=== PATIENT | male | born 1955 | race Caucasian/White ===

== ENCOUNTER → 2017-12-20 13:48 | Outpatient (CLI) | payer MEDICARE, MEDICAID, SELFPAY ==
--- NOTE | 2017-12-20 14:07 | CT_ITS ---
CT lung screening EXAM: CT LUNG LOW DOSE WO CONTRAST HISTORY: 62-year-old male with greater than 50 pack year smoking history, asymptomatic ITS.REASON: H/O NICOTINE DEPENDENCE ORDERING PHYSICIAN: Reilly Al MD PATIENT AGE: 62 years COMPARISON: 08/28/2016 TECHNIQUE: The exam was performed on a GE Light Speed [address] scanner using 2.90 mGy CTDI. A low dose helical CT CHEST was performed on a multi-detector scanner. All CT scans at the facility use one or more dose reduction, viz: automated exposure control; ma/kV adjustment per patient size (including targeted exams where dose is matched to indication; i.e. head); or iterative reconstruction technique. The LDCT was performed in a facility that meets the criteria for the screening program. Data regarding this exam was submitted to ACR which is an approved registry. The order for this exam indicates that it came as a result of a lung cancer screening counseling shard decision-making visit that included all the elements required of such a visit including smoking cessation. The radiologist interpreting this exam meets the CMS criteria for the LDCT lung cancer screening program. The exam is reported using the Lung-RADS classification scale and reported to the ACR registry. NOTE: This study was performed for the specific purposes of lung cancer screening and is not an alternative to diagnostic chest CT. RADIATION DOSE: CTDI vol(CT dose Index-volume) = 2.90mG DLP (Dose Length Product) = 120.37 mGcm FINDINGS: There is a 9 x 5 mm nodule in the right apex and contains a small central calcification not significant changed. There are biapical fibrotic changes which are stable. Noncalcified 3 mm nodule present in the superior segment of the right lower lobe unchanged. Noncalcified 4 mm nodule right upper lobe posteriorly unchanged Centrilobular and paraseptal emphysematous changes. Coronary artery calcifications Old right-sided rib fractures. Increased density noted within the posterior aspect of the gallbladder suggesting cholelithiasis. IMPRESSION: 1. Lung RADS Category: 2, benign 2. Other findings: COPD/centrilobular and paraseptal emphysema Possible cholelithiasis RECOMMENDATIONS: 12 month LDCT follow-up
== END ==
PROVIDERS: Family Provider Family Medicine; PCP Family Medicine; Visit Provider Family Medicine
DX: Z87.891 Personal history of nicotine dependence (principal); Z12.2 Encounter for screening for malignant neoplasm of respiratory organs

== ENCOUNTER → 2018-11-27 07:38 | Outpatient (CLI) | payer MEDICARE, MEDICAID, SELFPAY ==
--- NOTE | 2018-11-27 07:46 | CT_ITS ---
CT lung screening EXAM: CT LUNG LOW DOSE WO CONTRAST HISTORY: 75 pack-year smoking history asymptomatic for lung cancer ITS.REASON: CURRENT TOBACCO USE ORDERING PHYSICIAN: Reilly Al MD PATIENT AGE: 63 years COMPARISON: 12/20/2017 TECHNIQUE: The exam was performed on a GE Light Speed [address] scanner using 2.90 mGy CTDI. A low dose helical CT CHEST was performed on a multi-detector scanner. All CT scans at the facility use one or more dose reduction, viz: automated exposure control, ma/kV adjustment per patient size (including targeted exams where dose is matched to indication, i.e. head), or iterative reconstruction technique. The LDCT was performed in a facility that meets the criteria for the screening program. Data regarding this exam was submitted to ACR which is an approved registry. The order for this exam indicates that it came as a result of a lung cancer screening counseling shard decision-making visit that included all the elements required of such a visit including smoking cessation. The radiologist interpreting this exam meets the CMS criteria for the LDCT lung cancer screening program. The exam is reported using the Lung-RADS classification scale and reported to the ACR registry. NOTE: This study was performed for the specific purposes of lung cancer screening and is not an alternative to diagnostic chest CT. RADIATION DOSE: CTDI vol(CT dose Index-volume) = 2.90mG DLP (Dose Length Product) = 121.42 mGcm FINDINGS: Paraseptal emphysema. Biapical scarring. COPD. No change in the right apical 9 x 5 mm nodule with a central calcification. There are other smaller nodular opacities in right upper lobe which are unchanged previously described. No new nodules. Coronary artery calcifications are present. There is mild tracheobronchial megaly. IMPRESSION: 1. Lung RADS Category: 2, benign 2. Other findings: Paraseptal emphysema, COPD, coronary artery calcifications RECOMMENDATIONS: 12 month LDCT follow-up
== END ==
PROVIDERS: PCP Family Medicine; Visit Provider Family Medicine
DX: Z87.891 Personal history of nicotine dependence (principal); Z12.2 Encounter for screening for malignant neoplasm of respiratory organs

== ENCOUNTER → 2019-12-02 07:37 | Outpatient (CLI) | payer MEDICARE, MEDICAID, SELFPAY ==
--- NOTE | 2019-12-02 07:44 | CT_ITS ---
PROCEDURE: CT LUNG SCREENING CLINICAL INDICATION: H/O TOBACCO INDEPENDECE Seventy-five pack-year smoking history, asymptomatic for lung cancer COMPARISON: LUNGSCREEN CT lung screening from 11/27/2018 TECHNIQUE: The exam was performed on a GE Light Speed [address] scanner using 2.90 mGy CTDI. A low dose helical CT CHEST was performed on a multi-detector scanner. All CT scans at the facility use one or more dose reduction, viz: automated exposure control, ma/kV adjustment per patient size (including targeted exams where dose is matched to indication, i.e. head), or iterative reconstruction technique. The LDCT was performed in a facility that meets the criteria for the screening program. Data regarding this exam was submitted to ACR which is an approved registry. The order for this exam indicates that it came as a result of a lung cancer screening counseling shard decision-making visit that included all the elements required of such a visit including smoking cessation. The radiologist interpreting this exam meets the CMS criteria for the LDCT lung cancer screening program. The exam is reported using the Lung-RADS classification scale and reported to the ACR registry. NOTE: This study was performed for the specific purposes of lung cancer screening and is not an alternative to diagnostic chest CT. RADIATION DOSE: CTDI vol(CT dose Index-volume) = 2.90mG DLP (Dose Length Product) = 118.55 mGcm Lung Rads Category: FINDINGS: COPD with evidence of old granulomatous disease with biapical scarring. There are scattered small bilateral pulmonary nodules which contain calcium consistent with granulomas. No new suspicious nodules are evident. OTHER FINDINGS: Mild nonspecific thickening of the distal esophagus Coronary artery calcifications. Old right 11th and 10th rib fractures IMPRESSION: Lung rads category 1, negative Recommend 12 month LDCT Dictated by: Ernesto Doss MD 12/13/2019 07:37 Electronically signed by Ernesto Doss MD in [place] 12/13/2019 07:37
== END ==
PROVIDERS: PCP Family Medicine; Visit Provider Family Medicine
DX: Z87.891 Personal history of nicotine dependence (principal); Z12.2 Encounter for screening for malignant neoplasm of respiratory organs

== ENCOUNTER → 2020-12-14 06:39 | Outpatient (CLI) | payer MEDICARE, MEDICAID, SELFPAY ==
--- NOTE | 2020-12-14 06:44 | CT_ITS ---
PROCEDURE: CT LUNG SCREENING CLINICAL INDICATION: NICOTENE DEPENDENCE Current smoker COMPARISON: CT CT LUNG SCREENING from 12/02/2019 TECHNIQUE: The exam was performed on a GE Light Speed [address] scanner using 2.90 mGy CTDI. A low dose helical CT CHEST was performed on a multi-detector scanner. All CT scans at the facility use one or more dose reduction, viz: automated exposure control, ma/kV adjustment per patient size (including targeted exams where dose is matched to indication, i.e. head), or iterative reconstruction technique. The LDCT was performed in a facility that meets the criteria for the screening program. Data regarding this exam was submitted to ACR which is an approved registry. The order for this exam indicates that it came as a result of a lung cancer screening counseling shard decision-making visit that included all the elements required of such a visit including smoking cessation. The radiologist interpreting this exam meets the [facility] criteria for the LDCT lung cancer screening program. The exam is reported using the Lung-RADS classification scale and reported to the ACR registry. NOTE: This study was performed for the specific purposes of lung cancer screening and is not an alternative to diagnostic chest CT. RADIATION DOSE: CTDI vol(CT dose Index-volume) = 2.90mG DLP (Dose Length Product) = 117.24 mGcm FINDINGS: Biapical scarring. COPD with left apical paraseptal emphysematous change and scattered areas of scarring. Old granulomatous disease. Coronary artery calcification. Mild nonspecific thickening of the stomach possibly due to nondistention. OTHER FINDINGS: Old right 9th rib fracture. IMPRESSION: Lung-RADS Category 1 Negative Follow-up: Continue annual screening with LDCT in 12 months Dictated by: Ernesto Doss MD 12/26/2020 09:15 Ernesto Doss MD in [place] 12/26/2020 09:15
== END ==
PROVIDERS: PCP Family Medicine; Visit Provider Family Medicine
DX: Z87.891 Personal history of nicotine dependence (principal); Z12.2 Encounter for screening for malignant neoplasm of respiratory organs
CPT/HCPCS: 71271

== ENCOUNTER → 2022-11-29 10:47 | Outpatient (CLI) | payer MEDICARE, MEDICAID, SELFPAY ==
--- NOTE | 2022-11-29 10:57 | CT_ITS ---
FINAL REPORT CLINICAL HISTORY: H/O TOBACCO USE smoker 1.5 ppd x 52 years copd, family hx of lung cancer COMPARISON: 01/03/2021, 12/02/2019 FINDINGS: CTDI vol (mGy): 2.90 DLP: 113.[address] images of the chest were obtained using the low-dose protocol for screening. There are several, borderline mediastinal lymph nodes, unchanged. There is no evidence of mediastinal or hilar mass or adenopathy. No axillary mass or adenopathy is identified. On the lung window images, again seen is a 9 mm nodule in the right upper lobe with central calcification consistent with granuloma. Less than 5 mm bilateral nodules which are also stable. Mild emphysema and scarring is seen. There are several other, less than 5 mm bilateral nodules. There are several other, less than 5 mm bilateral nodules which are stable. Mild emphysema and mild scarring is seen. There are mild coronary artery calcifications. IMPRESSION: Stable 9 mm right upper lobe nodule consistent with granuloma. Lung RADS category 1 . Recommend 12 month followup low-dose CT for further evaluation. Reviewed, Interpreted and Dictated by Ramón Pena III, MD Transcribed by Elizabeth Lai Authenticated and [facility]
== END ==
PROVIDERS: PCP Family Medicine; Visit Provider Family Medicine
DX: Z87.891 Personal history of nicotine dependence (principal); Z12.2 Encounter for screening for malignant neoplasm of respiratory organs
CPT/HCPCS: 71271

== ENCOUNTER 2023-12-09 08:40 | Outpatient (CLI) | payer MEDICARE, MEDICAID, SELFPAY ==
--- NOTE | 2023-12-09 08:44 | CT_ITS ---
FINAL REPORT TECHNIQUE: Thin section axial images were obtained from the lung apices to the upper abdomen by computed tomography. Reformatted images were obtained and reviewed. This study was performed with techniques to keep radiation doses al low as reasonably achievable (ALARA). Individualized dose reduction techniques using automated exposure control or adjustment of mA and/or kV according to the patient's size were employed. CLINICAL HISTORY: H/O TOBACCO USE current smoker 1.5ppd x62 years COMPARISON: 11/29/2022 and 12/14/2020 FINDINGS: CHEST CT LOW DOSE CTDI vol (mGy): 2.90 DLP (mGy-cm): 111.25 There are several borderline sized mediastinal nodes which are stable. The heart is normal in size. There are mild coronary artery calcifications. There is no pericardial or pleural effusion. There is mild emphysema and mild pulmonary scarring. Lung window images demonstrate a 9 mm partially calcified lateral right upper lobe nodule, stable since December 2020. There are several other less than 5 mm noncalcified nodules which are also stable. There is a calcified granuloma in the right lung. Limited images of the upper abdomen are unremarkable. IMPRESSION: Stable lung nodules as above. Lung-RADS category 1. Recommend 12 month follow up low dose chest CT. Reviewed, Interpreted and Dictated by Ramón Pena III, MD Transcribed by Laura Lance Authenticated and [facility]
== END 2023-12-09 23:59 | disposition home or self-care (01) ==
LOC: RAD 08:41
PROVIDERS: PCP Family Medicine; Visit Provider Family Medicine
DX: Z87.891 Personal history of nicotine dependence (principal); Z12.2 Encounter for screening for malignant neoplasm of respiratory organs
CPT/HCPCS: 71271

== ENCOUNTER 2025-03-18 09:42 | Outpatient (CLI) | payer MEDICARE, MEDICAID, SELFPAY ==
--- OUTSIDE RECORDS SUMMARY | 2023-11-19 05:00 | XMS_ITS ---
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 Designer Name Role Phone Reilly Al Primary Care Provider Allergies No Known Allergies Results Component Value Reference Range Notes P-Vitamin B12 Reviewed date:11/20/2023 10:23:57 AM Interpretation:1775 Performing Lab: Notes/Report: Test performed by [facility] [address] [place] [address] , [address], [place] [address] Chong Polo MD, Business Communications Instructor CLIA: [id number] Vitamin B12 8754 560-2785 pg/mL P-Basic Metabolic Panel (BMP ) Reviewed date:11/20/2023 10:23:57 AM Interpretation:Na 134 Performing Lab: Notes/Report: Test performed by [facility] [address] [place] [address] , [address], [place] [address] Chong Polo MD, Business Communications Instructor CLIA: [id number] Sodium 134 135-145 mEq/L Potassium 4.5 3.5-5.3 mEq/L Chloride 100 97-108 mEq/L CO2 23 22-32 mEq/L Glucose 87 65-99 mg/dL BUN 11 8-23 mg/dL Creatinine 0.72 0.70-1.30 mg/dL Calcium 9.8 8.6-10.4 mg/dL eGFR by Creatinine 99 >59 mL/min/1.73m2 P-Lipid Panel Reviewed date:11/20/2023 10:23:57 AM Interpretation:Normal Performing Lab: Notes/Report: Test performed by [facility] [address] [place] [address] , [address], [place] [address] Chong Polo MD, Business Communications Instructor CLIA: [id number] Cholesterol 195 <200 mg/dL Triglycerides 52 <150 mg/dL HDL Cholesterol 78 >39 mg/dL Cholesterol / HDL Ratio 2.50 0.00-4.99 Ratio Non-HDL Cholesterol 117 <130 mg/dL LDL Cholesterol (Calculation) 107 <130 mg/dL LDL Cholesterol Levels* Less than 100 mg/dL Optimal 100 to 129 mg/dL Near Optimal/ Above Optimal 130 to 159 mg/dL Borderline High 160 to 189 mg/dL High 190 mg/dL and above Very High * Categories as recommended by the 2004 ATPIII guidelines LDL/HDL Ratio 1.4 <3.3 Ratio LDL Cholesterol Patient History Test Date: 05/22/2022 LDL Results: 136 Units: mg/dL % Change: - Test Date: 11/19/2023 LDL Results: 107 Units: mg/dL % Change: -21% P-Microalbumin/Creatinine, R andom Urine Sample Reviewed date:11/20/2023 10:23:57 AM Interpretation:Normal Performing Lab: Notes/Report: Test performed by [facility] [address] [place] [address] , [address], [place] [address] Chong Polo MD, Business Communications Instructor CLIA: [id number] Albumin/Creatinine Ratio, Urine 6 0-30 ug/m g Microalbumin, Urine, Random 0.6 Creatinine, Urine 103.7 P-Uric Acid Reviewed date:11/20/2023 10:23:57 AM Interpretation:Normal Performing Lab: Notes/Report: Test performed by [facility] [address] [place] [address] , [address], [place] [address] Chong Polo MD, Business Communications Instructor CLIA: [id number] Uric Acid 5.1 3.4-8.0 mg/dL CT Scan : Chest, low dose Reviewed date:12/10/2023 10:49:44 AM Interpretation:Stable; annual f/u Performing Lab: Notes/Report: Stable; annual f/u REASON FOR VISIT 6 month Medications Medication SIG (Take, Route, Frequency, Duration) Notes Start Date End Date Status Famotidine 40 MG 1 tab(s) orally once a day (at bedtime); Duration: 90 days Active Vitamin B-12 1000 MCG 1 tab(s) orally once a day 0 12/18/2018 Active Gabapentin 100 MG 1 capsule Orally Two times a day; Duration: 30 day(s) 10/25/2023 Activ e Lisinopril 20 MG 1 tab(s) orally once a day Active Sildenafil Citrate 20 MG 1 to 5 tab(s) o rally once daily as needed 11/23/2019 Active Vital Signs Blood pressure systolic 132 mm Hg 11/19/19 24 Blood pressure diastolic 82 mm Hg 024 Heart Rate 53 /min 11/19/2023 Height 65 in 11/19/2023 Weight 142.4 lbs 11/19/2023 BMI 23.69 kg/m2 11/19/2023 Encounters Encounter Location Date Provider Diagnosis [facility] [address] [facility] [address] [place], [place] [id number] 11/19/2023 Reilly [place] Essential hypertensi on I10 ; Vitamin B12 deficiency E53.8 ; Gastroesophageal reflux disease, esophagitis presence not specified K21.9 ; Personal history of nicotine dependence Z87.891 and Encounter for screening for lung cancer Z12.2 Assessments Encounter Date Diagnosis (ICD Code) Assessment Notes Treatment Notes Treatment Clinical Notes Section Notes 11/19/2023 Essential hypertension (ICD-10 - I10) 11/19/2023 Vitamin B12 deficiency (ICD-10 - E53.8) 11/19/2023 Gastroesophageal reflux disease, esophagitis presence not specified (ICD-10 - K21.9) 11/19/2023 Personal history of nicotine dependence (ICD-10 - Z87.891) 11/19/2023 Encounter for screening for lung cancer (ICD-10 - Z12.2) Plan Of Treatment Medication Medication Name Sig Start Date Stop Date Notes Famotidine 40 MG 1 tab(s) orally once a day (at bedtime); Duration: 90 days Vitamin B-12 1000 MCG 1 tab(s) orally once a day 9 Lisinopril 20 MG 1 tab(s) orally once a day Next Appt Details Follow Up: 6 Months, Reason: Provider Name:Reilly Brito ry, 09/06/2025 10:45:00 AM, [address] [facility] [address] [facility], [address] , [place], [place], [id number], Progress Notes * AQUILINOZanDOB:1955 (69 yo M)Acc No.[id number]:11/19/2023 Progress Notes Patient: Zan CAMILO Provider: Luz Al M.D. :1955 A ge:68 Y S ex:Male Date:11/19/2023 Address:[address] [place] [address], [id number] Subjective: * Chief Complaints: * 1 . 6 month. * HPI: C ardiology: 68 year old male presents with c/o BloodPressure at Home T he patient is here today for a check up on Hypertension. Pt states he is fasting except for a cup of coffee with cream. Pt states he is doing good and denies any new concerns. Pt is needing a refill for Famotidine sent to [facility] in [place]. * ROS: D ERMATOLOGY: no R helena. n o H tanisha. G ASTROENTEROLOGY: no N ausea. n o V omiting. n o D iarrhea.? U ROLOGY: no D ifficulty urinating. n o B lood in urine. * Medical History: D isabled due to back pain (medical eval in 2004 or 2005), Tobacco abuse, 100 pack year smoking history as of 2017, Esophageal reflux, Hypertension, Bilateral knee arthritis. * Surgical History: R T Arm , LT Knee Cyst Removal 07/2015. * Hospitalization/Major Diagno stic Procedure: C hest Pain, Normal Stress Test 07/2008, LT Shoulder Pain- [facility] ER 02/2013. * Family History: F ather: , coronary artery disease. M other: , cancer. 2 brother(s) , 3 sister(s) . 1 son(s) , 1 daughter(s) . . * Social History: C URRENT TOBACCO USE S moking Status: Patient does smoke, packs per day: 1.5. C affeine: yes, frequency:. Marital Status: Single. Past smoking status: yes, PPD:2 , 20years: ,determination:. * Medications: T aking Sildenafil Citrate 20 MG Tablet 1 to 5 tab(s) orally once daily as needed , Taking Vitamin B-12 1000 MCG Tablet 1 tab(s) orally once a day , Taking Lisinopril 20 MG Tablet 1 tab(s) orally once a day , Taking Famotidine 40 MG Tablet 1 tab(s) orally once a day (at bedtime) , Taking Gabapentin 100 MG Capsule 1 capsule Orally Two times a day , Discontinued Mupirocin 2 % Ointment 1 application Externally Twice a day , Discontinued Sulindac 200 MG Tablet 1 tab(s) orally 2 times a day , Medication List reviewed and reconciled with the patient * Allergies: N .K.D.A. Objective: * Vitals: W t:142.4, Temp:97.6, BP:132/82, HR:53, Nurse:OMAR, Ht: 65, BMI:23.69. * Examination: C ardiology: General Appearance: p leasant, NAD. H eart sounds: R RR, normal S1, S2. L ungs: c lear, no rales or wheezes. E xtremities: n o leg edema. P eripheral pulses: 2 plus bilateral. Assessment: * Assessment: 1. E ssential hypertension - I10 (Primary) 2 . V itamin B12 deficiency - E53.8 3 . G astroesophageal reflux disease, esophagitis presence not specified - K21.9 4 . P ersonal history of nicotine dependence - Z87.891 5 . Encounter for screening for lung cancer - Z12.2 Plan: * Treatment: Value Reference Range B UN 11 8-23 - mg/dL * C alcium 9.8 8.6-10.4 - mg/dL * C hloride 100 97-108 - mEq/L * C O2 23 22-32 - mEq/L * C reatinine 0.72 0.70-1.30 - mg/dL * G lucose 87 65-99 - mg/dL * P otassium 4.5 3.5-5.3 - mEq/L * S odium 134 L 135-145 - mEq/L * e GFR by Creatinine 99 >59 - mL/min/1.73m2 * Theresa Singleton 11/20/2023 10:2 2:40 AM >See phone encounter ?LAB: P-Lipid Panel (Collection Date & Time - 11/19/2023 08:25 AM)?Normal* Value Reference Range C holesterol / HDL Ratio 2.50 0.00-4.99 - Ratio * C holesterol 195 <200 - mg/dL * H DL Cholesterol 78 >39 - mg/dL * L DL Cholesterol (Calculation) 107 <130 - mg/d L * L DL/HDL Ratio 1.4 <3.3 - Ratio * N on-HDL Cholesterol 117 <130 - mg/dL * T riglycerides 52 <150 - mg/dL * Thersea Singleton 11/20/2023 10:2 2:40 AM >See phone encounter ?LAB: P-Microalbumin/Creatinine, Random Urine Sample (Collection Date & Time - 11/19/2023 08:25 AM)?Normal* Value Reference Range A lbumin/Creatinine Ratio, Urine 6 0-30 - ug /mg * C reatinine, Urine 103.7 - mg/dL * M icroalbumin, Urine, Random 0.6 - mg/dL * Priya Singletonica 11/20/2023 10:2 2:40 AM >See phone encounter ?LAB: P-Uric Acid (Collection Date & Time - 11/19/2023 08:25 AM)?Normal* Value Reference Range U moreno Acid 5.1 3.4-8.0 - mg/dL * Priya Singletonica 11/20/2023 10:2 2:40 AM >See phone encounter 2.?Vitamin B12 deficiency? Continue Vitamin B-12 Tablet, 1000 MCG, 1 tab(s), orally, once a day.?LAB: P-Vitamin B12 (Collection Date & Time - 11/19/2023 08:25 AM)?1775* Value Reference Range V itamin B12 1775 H 232-1245 - pg/mL * Priya Singletonica 11/20/2023 10:2 2:40 AM >See phone encounter 3.?Gastroesophageal reflux disease, esophagitis presence not specified? Refill Famotidine Tablet, 40 MG, 1 tab(s), orally, once a day (at bedtime), 90 days, 90, Refills 1. ?4.?Personal history of nicotine dependence?Imaging: CT Scan : Chest, low dose (Performed Date - 12/09/2023)?Stable; annual f/u* Zoila Thomson 11/19/2023 10:47 :00 AM > [facility] 12/09/2023 at 01:45pm; patient informed; order Jovita Yoon 12/10/2023 10:48:47 AM > Pt informed 5.?Encounter for screening for lung cancer?Imaging: CT Scan : Chest, low dose (Performed Date - 12/09/2023)?Stable; annual f/u* Zoila Thomson 11/19/2023 10:47 :00 AM > [facility] 12/09/2023 at 01:45pm; patient informed; order Jovita Yoon 12/10/2023 10:48:47 AM > Pt informed * Procedure Codes: G 2211 Complex e/m visit add on * Follow Up: 6 Months * Images: Billing Information: * Visit Code: 21095 Office Visit, Est Pt., Level 4. * Procedure Codes: G2211 Complex e/m visit add on. * Electronic signature of Araceli Al MD on 03/18/2025 at 09:50 AM EDT Sign off status: Pending * Provider: Luz Al M.D. Date: 0 11/19/2023 Generated for Claudia pemberton/Jennifer/Kacyitting on: 0 03/18/2025 09:50 AM EDT History and Physical Notes * HPI (History of Present Illness) Category Sub-Category Detail Notes Category Not es Cardiology BloodPressure at Home The patien t is here today for a check up on Hypertension. Pt states he is fasting except for a cup of coffee with cream. Pt states he is doing good and denies any new concerns. Pt is needing a refill for Famotidine sent to [facility] in [place] Examination Category Sub-Category Detail Notes Category Not es Cardiology Lungs: clear, no rales or wheezes Heart sounds: RRR, normal S1, S2 Extremities: no leg edema Peripheral pulses: 2 plus bilateral General Appearance: pleasant, NAD
--- OUTSIDE RECORDS SUMMARY | 2024-08-28 07:15 | XMS_ITS ---
Author Organization [facility] Address 1210 [facility] [address] [place] [phone] Care Team Providers Care Custody Officer Name Role Phone Reilly Al Primary Care Provider [phone] Allergies No Known Allergies REASON FOR VISIT check up Medications Medication SIG (Take, Route, Frequency, Duration) Notes Start Date End Date Status Promethazine-DM 6.25-15 MG/5ML 5 ml as needed Orally every 6 hrs 08/28/2024 Active Vitamin B-12 1000 MCG 1 tab(s) orally once a day 0 12/18/2018 Active Gabapentin 100 MG 1 capsule Orally Two times a day; Duration: 30 day(s) 02/21/2024 Activ e Famotidine 40 MG 1 tab(s) orally once a day (at bedtime); Duration: 90 days Active Sildenafil Citrate 20 MG 1 to 5 tab(s) o rally once daily as needed 11/23/2019 Active Lisinopril 20 MG 1 tab(s) orally once a day Active Vital Signs Blood pressure systolic 128 mm Hg 08/28/19 25 Blood pressure diastolic 78 mm Hg 025 Heart Rate 78 /min 08/28/2024 Height 65 in 08/28/2024 Weight 153 lbs 08/28/2024 BMI 25.46 kg/m2 08/28/2024 Encounters Encounter Location Date Provider Diagnosis [facility] [address] [place] [address] [place] [phone] 08/28/2024 Reilly Al Essential hypertensi on I10 and Acute cough R05.1 Assessments Encounter Date Diagnosis (ICD Code) Assessment Notes Treatment Notes Treatment Clinical Notes Section Notes 08/28/2024 Essential hypertension (ICD-10 - I10) 08/28/2024 Acute cough (ICD-10 - R05.1) Plan Of Treatment Medication Medication Name Sig Start Date Stop Date Notes Promethazine-DM 6.25-15 MG/5ML 5 ml as n eeded Orally every 6 hrs 08/28/2024 Lisinopril 20 MG 1 tab(s) orally once a day Next Appt Details Follow Up: 6 Months fasting, Reason: Provider Name:Reilly Brito ry, 09/06/2025 10:45:00 AM, [address], [place], [place], [id number], Progress Notes * Zan FLORESDOB:1955 (69 yo M)Acc No.[id number]:08/28/2024 Progress Notes Patient: Zan CAMILO Provider: Luz Al M.D. :1955 A ge:69 Y S ex:Male Date:08/28/2024 Address:[address] [place] [address], [place], [id number] Subjective: * Chief Complaints: * 1 . Check up. * HPI: C ardiology: 69 year old male presents with c/o Blood Pressure Elevated P t here to f/u on hypertension, states he is doing well and does not have any concerns . c/o Hyperlipidemia P t is not fasting today. E NT/respiratory: c/o cough P t complains of greenish yellow sputum production cough for about a week. Associated with sneezing and congestion. Pt states he has been taking Mucinex but sx's have not improved. * ROS: D ERMATOLOGY: no R helena. n o H tanisha. G ASTROENTEROLOGY: no N ausea. n o V omiting. U ROLOGY: no D ifficulty urinating. n [...] Normal Stress Test 07/2008, LT Shoulder Pain- [facility] ER 02/2013. * Family History: F [...] , 20years: ,determination:. * Medications: T aking Vitamin B-12 1000 MCG Tablet 1 tab(s) orally once a day , Taking Gabapentin 100 MG Capsule 1 capsule Orally Two times a day , Taking Famotidine 40 MG Tablet 1 tab(s) orally once a day (at bedtime) , Taking Sildenafil Citrate 20 MG Tablet 1 to 5 tab(s) orally once daily as needed , Taking Lisinopril 20 MG Tablet 1 tab(s) orally once a day , Medication List reviewed and reconciled with the patient * Allergies: N .K.D.A. Objective: * Vitals: W t:153, Temp:97.9, BP:128/78, HR:78, Nurse:erwin, Ht: 65, BMI:25.46. * Examination: E NT/Respiratory: General Appearance: N AD. E yes: P ERRLA, sclera clear. O ral cavity : n o erythema or exudate seen on pharynx. N maria esther : n o cervical lymphadenopathy. H eart : R RR, normal S1 S2. L ungs: c lear to auscultation bilaterally. Assessment: * Assessment: 1. E ssential hypertension - I10 (Primary) 2 . A cute cough - R05.1 ? Plan: * Treatment: 2. A cute cough Start Promethazine-DM Syrup, 6.25-15 MG/5ML, 5 ml as needed, Orally, every 6 hrs, 473 mL, Refills 0. * Procedure Codes: G 2211 Complex e/m visit add on, 3074F SYST BP LT 130 MM HG, 3078F DIAST BP < 80 MM HG * Follow Up: 6 Months fasting * Images: Billing Information: * Visit Code: 54250 Office Visit, Est Pt., Level 3. * Procedure Codes: G2211 Complex e/m visit add on. 3074F SYST BP LT 130 MM HG. 3078F DIAST BP < 80 MM HG. * Electronic signature of Araceli Al MD on 03/18/2025 at 09:51 AM EDT Sign off status: Pending * Provider: Luz Al M.D. Date: 0 08/28/2024 Generated for Claudia pemberton/Jennifer/eTransmitting on: 0 03/18/2025 09:51 AM EDT History and Physical Notes * HPI (History of Present Illness) Category Sub-Category Detail Notes Category Not es ENT/respiratory cough Pt complains of greenish yellow sputum production cough for about a week. Associated with sneezing and congestion. Pt states he has been taking Mucinex but sx's have not improved Cardiology Blood Pressure Elevated Pt here to f/u on hypertension, states he is doing well and does not have any concerns Hyperlipidemia Pt is not fasting to day Examination Category Sub-Category Detail Notes Category Not es ENT/Respiratory Oral cavity : no erythema or exudate s een on pharynx Neck : no cervical lymphade nopathy Heart : RRR, normal S1 S2 Lungs: clear to auscultatio n bilaterally General Appearance: NAD Eyes: PERRLA, sclera clear
--- OUTSIDE RECORDS SUMMARY | 2025-03-05 06:45 | XMS_ITS ---
Author Organization [facility] Address [address] [facility] [address] [place] [phone] Care Team Providers Care Ostomy Nurse Name Role Phone Reilly Al Primary Care Provider Allergies No Known Allergies Results Component Value Reference Range Notes CBC Venipuncture (in house) Reviewed date:03/09/2025 09:15:09 AM Interpretation:hgb 17.1 Performing Lab: Notes/Report: hgb 17.1 wbc 6.7 3.5 - 10 lymph 18.9% 15 - 50 mid 5.6% 2 - 15 gran 75.5% 35 - 80 rbc 5.20 3.5 - 5.5 hgb 17.1 11.5 - 16.5 hct 49.8 35 - 55 mcv 95.7 75 - 100 mch 32.8 25 - 35 mchc 34.3 31 - 38 platlet 354 100 - 400 P-Comprehensive Metabolic Pa lynsey (CMP) Reviewed date:03/09/2025 09:15:09 AM Interpretation:Na 133, Glu 133, Alk Phos 164 Performing Lab: Notes/Report: Test performed by [employer], [employer] [facility] , [address], [place] [address] Chong Polo MD, Airline Counter Agent CLIA: [id number] Sodium 133 135-145 mmol/L Potassium 4.2 3.5-5.3 mmol/L Chloride 97 97-108 mmol/L CO2 24 20-32 mmol/L Glucose 133 65-99 mg/dL BUN 8 8-23 mg/dL Creatinine 0.77 0.70-1.30 mg/dL Calcium 9.9 8.6-10.4 mg/dL eGFR by Creatinine 97 >59 mL/min/1.73m2 Protein 7.1 6.0-8.3 g/dL Albumin 4.5 3.5-5.3 g/dL Alkaline Phosphatase 164 40-129 IU/L ALT (SGPT) 16 <5-55 IU/L AST (SGOT) 21 <5-46 IU/L Bilirubin, Total 0.4 <0.2-1.2 mg/dL A/G Ratio 1.7 1.1-2.5 P-Lipid Panel Reviewed date:03/09/2025 09:15:09 AM Interpretation:Non-HDL 140 Performing Lab: Notes/Report: Test performed by [employer], [address] , [address], [place] [address] Chong Polo MD, Airline Counter Agent CLIA: [id number] Cholesterol 195 <200 mg/dL Triglycerides 86 <150 mg/dL HDL Cholesterol 55 >39 mg/dL Cholesterol / HDL Ratio 3.55 0.00-4.99 Ratio Non-HDL Cholesterol 140 <130 mg/dL LDL Cholesterol (Calculation) 123 <130 mg/dL LDL Cholesterol Levels* Less than 100 mg/dL Optimal 100 to 129 mg/dL Near Optimal/ Above Optimal 130 to 159 mg/dL Borderline High 160 to 189 mg/dL High 190 mg/dL and above Very High * Categories as recommended by the 2004 ATPIII guidelines LDL/HDL Ratio 2.2 <3.3 Ratio LDL Cholesterol Patient History Test Date: 05/22/2022 LDL Results: 136 Units: mg/dL % Change: - Test Date: 11/19/2023 LDL Results: 107 Units: mg/dL % Change: -21% Test Date: 03/05/2025 LDL Results: 123 Units: mg/dL % Change: +14% P-TSH reflex to FT4 Reviewed date:03/09/2025 09:15:09 AM Interpretation:Normal Performing Lab: Notes/Report: Test performed by [facility] [address] [place], [place] [address] [address] , [place] [address] Chong Polo MD, Airline Counter Agent CLIA: [id number] TSH reflex to FT4 0.72 0.43-5.25 mU/L P-Microalbumin/Creatinine, R andom Urine Sample Reviewed date:03/17/2025 01:53:49 PM Interpretation:Normal Performing Lab: Notes/Report: Test performed by [facility] [address] [place], [place] [address] [address] , [place] [address] Chong Polo MD, Airline Counter Agent CLIA: [id number] Albumin/Creatinine Ratio, Urine <7.53 0-30 ug/m g Microalbumin, Urine, Random <0.3 Creatinine, Urine 39.8 REASON FOR VISIT 6 month ckup Medications Medication SIG (Take, Route, Frequency, Duration) Notes Start Date End Date Status Cetirizine HCl 10 MG 1 tablet Orally Onc e a day; Duration: 30 day(s) 03/05/2025 Active Sildenafil Citrate 20 MG 1 to 5 tab(s) o rally once daily as needed 11/23/2019 Active Lisinopril 20 MG Take 1 tablet by darion th once daily Active Famotidine 40 MG 1 tab(s) orally once a day (at bedtime) Active Promethazine-DM 6.25-15 MG/5ML 5 ml as needed Orally every 6 hrs 08/28/2024 Active Gabapentin 100 MG 1 capsule Orally Two times a day; Duration: 30 day(s) 02/21/2024 Activ e Vitamin B-12 1000 MCG 1 tab(s) orally once a day 0 12/18/2018 Active Problems Problem Type SNOMED Code ICD Code Onset Dates Problem Status W/U Status Risk Notes Problem Allergic rhinitis (52021835) Allergic rhinitis, unspecified seasonality, unspecified trigger (J30.9) Active confirmed Vital Signs Blood pressure systolic 124 mm Hg 03/05/20 25 Blood pressure diastolic 80 mm Hg 025 Heart Rate 70 /min 03/05/2025 Height 65 in 03/05/2025 Weight 144.4 lbs 03/05/2025 BMI 24.03 kg/m2 03/05/2025 Encounters Encounter [facility] Date 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 Z79.899 ; Allergic rhinitis, unspecified seasonality, unspecified trigger J30.9 and BMI 24.0-24.9, adult Z68.24 Assessments Encounter Date Diagnosis (ICD Code) Assessment Notes Treatment Notes Treatment Clinical Notes Section Notes 03/05/2025 Essential hypertensi on (ICD-10 - I10) 03/05/2025 Vitamin B12 deficien cy (ICD-10 - E53.8) 03/05/2025 Pure hypercholesterolemia (ICD-10 - E78.00) 03/05/2025 Gastroesophageal ref lux disease, esophagitis presence not specified (ICD-10 - K21.9) 03/05/2025 termite control service representative use of radhika g (ICD-10 - Z79.899) 03/05/2025 Allergic rhinitis, unspecified seasonality, unspecified trigger (ICD-10 - J30.9) 03/05/2025 BMI 24.0-24.9, adult (ICD-10 - Z68.24) Plan Of Treatment Medication Medication Name Sig Start Date Stop Date Notes Cetirizine HCl 10 MG 1 tablet Orally Onc e a day; Duration: 30 day(s) 03/05/2025 Lisinopril 20 MG Take 1 tablet by mouth once daily Famotidine 40 MG 1 tab(s) orally once a day (at bedtime) Next Appt Details Follow Up: 6 Months, Reason: Provider Name:Reilly Brito ry, 09/06/2025 10:45:00 AM, [address], [place], [place], [phone], Progress Notes * Zan FLORESDOB:1955 (69 yo M)Acc No.[id number]:03/05/2025 Progress Notes Patient: Zan CAMILO Provider: Luz Al M.D. :1955 A ge:69 Y S ex:Male Date:03/05/2025 Address:[address] [place] [address], [facility] Subjective: * Chief Complaints: * 1 . 6 month ckup. * HPI: C ardiology: 69 year old male presents with c/o Blood Pressure Elevated P t here for 6 mo check up on hypertension. Pt states he is doing fine other than his allergies acting up. c/o Hyperlipidemia Pt is not fasting today. * ROS: D ERMATOLOGY: no R helena. [...] Normal Stress Test 07/2008, LT Shoulder Pain- [facility] ER 02/2013. * Family History: F ather: [...] Orally Two times a day , Taking Sildenafil Citrate 20 MG Tablet 1 to 5 tab(s) orally once daily as needed , Taking Promethazine-DM 6.25-15 MG/5ML Syrup 5 ml as needed Orally every 6 hrs , Taking Lisinopril 20 MG Tablet Take 1 tablet by mouth once daily , Taking Famotidine 40 MG Tablet 1 tab(s) orally once a day (at bedtime) , Medication List reviewed and reconciled with the patient * Allergies: N .K.D.A. Objective: * Vitals: W t: 144.4, Temp: 97.8, BP: 124/80, HR: 70, Nurse: SYDNIE, Ht: 65, BMI:24.03. * Examination: C ardiology: General Appearance: p leasant, NAD. H eart sounds: R RR, normal S1, S2. L ungs: c lear, no rales or wheezes. E xtremities: n o leg edema. P eripheral pulses: 2 plus bilateral. Assessment: * Assessment: 1. E ssential hypertension - I10 (Primary) 2 . V itamin B12 deficiency - E53.8 3 . P ure hypercholesterolemia - E78.00 4 . G astroesophageal reflux disease, esophagitis presence not specified - K21.9 5 . L adriane term use of drug - Z79.899 6 . A llergic rhinitis, unspecified seasonality, unspecified trigger - J30.9 7 . B HI 24.0-24.9, adult - Z68.24 Plan: * Treatment: Value Reference Range A /G Ratio 1.7 1.1-2.5 - * A lbumin 4.5 3.5-5.3 - g/dL * A lkaline Phosphatase 164 H 40-129 - IU/L * A LT (SGPT) 16 <5-55 - IU/L * A ST (SGOT) 21 <5-46 - IU/L * B ilirubin, Total 0.4 <0.2-1.2 - mg/dL * B UN 8 8-23 - mg/dL * C alcium 9.9 8.6-10.4 - mg/dL * C hloride 97 97-108 - mmol/L * C O2 24 20-32 - mmol/L * C reatinine 0.77 0.70-1.30 - mg/dL * G lucose 133 H 65-99 - mg/dL * P otassium 4.2 3.5-5.3 - mmol/L * S odium 133 L 135-145 - mmol/L * P rotein 7.1 6.0-8.3 - g/dL * e GFR by Creatinine 97 >59 - mL/min/1.73m2 * Shayy Pelletier 03/09/2025 09:1 5:04 AM EDT > See phone encounter ?LAB: P-Microalbumin/Creatinine, Random Urine Sample (Collection Date & Time - 03/09/2025 12:00 PM)?Normal* Value Reference Range A lbumin/Creatinine Ratio, Urine <7.53 0-30 - ug /mg * C reatinine, Urine 39.8 - mg/dL * M icroalbumin, Urine, Random <0.3 - mg/dL * Jovita Wall 03/17/2025 01:53: 43 PM EDT > Pt notified 2.?Pure hypercholesterolemia?LAB: P-Comprehensive Metabolic Panel (CMP) (Collection Date & Time - 03/05/2025 10:06 AM)?Na 133, Glu 133, Alk Phos 164* Value Reference Range A /G Ratio 1.7 1.1-2.5 - * A lbumin 4.5 3.5-5.3 - g/dL * A lkaline Phosphatase 164 H 40-129 - IU/L * A LT (SGPT) 16 <5-55 - IU/L * A ST (SGOT) 21 <5-46 - IU/L * B ilirubin, Total 0.4 <0.2-1.2 - mg/dL * B UN 8 8-23 - mg/dL * C alcium 9.9 8.6-10.4 - mg/dL * C hloride 97 97-108 - mmol/L * C O2 24 20-32 - mmol/L * C reatinine 0.77 0.70-1.30 - mg/dL * G lucose 133 H 65-99 - mg/dL * P otassium 4.2 3.5-5.3 - mmol/L * S odium 133 L 135-145 - mmol/L * P rotein 7.1 6.0-8.3 - g/dL * e GFR by Creatinine 97 >59 - mL/min/1.73m2 * Shayy Pelletier 03/09/2025 09:1 5:04 AM EDT > See phone encounter ?LAB: P-Lipid Panel (Collection Date & Time - 03/05/2025 10:06 AM)?Non-HDL 140* Value Reference Range C holesterol / HDL Ratio 3.55 0.00-4.99 - Ratio * C holesterol 195 <200 - mg/dL * H DL Cholesterol 55 >39 - mg/dL * L DL Cholesterol (Calculation) 123 <130 - mg/d L * L DL/HDL Ratio 2.2 <3.3 - Ratio * N on-HDL Cholesterol 140 H <130 - mg/dL * T riglycerides 86 <150 - mg/dL * Shayy Pelletier 03/09/2025 09:1 5:04 AM EDT > See phone encounter ?LAB: P-TSH reflex to FT4 (Collection Date & Time - 03/05/2025 10:06 AM)? Normal* Value Reference Range T SH reflex to FT4 0.72 0.43-5.25 - mU/L * Shayy Pelletier 03/09/2025 09:1 5:04 AM EDT > See phone encounter 3.?Gastroesophageal reflux disease, esophagitis presence not specified? Continue Famotidine Tablet, 40 MG, 1 tab(s), orally, once a day (at bedtime).?? 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 Start Cetirizine HCl Tablet, 10 MG, 1 tablet, Orally, Once a day, 30 day(s), 30.?? * Procedure Codes: G 2211 Complex e/[place], [address] CBC WITH AUTO DIFF, G8420 BMI<30 AND >=22 CALC & DOCU, G8950 PREHTN/HTN BP DOC INDCD F/U DOC, G8752 MOST RECENT SYSTOLIC BP < 140MM HG, G8754 MOST RECENT DIASTOLIC BP < 90MM HG * Follow Up: 6 Months * Images: Drawin03/05/25 [facility] Billing Information: * Visit Code: 22494 Office Visit, Est Pt., Level 4. * Procedure Codes: G2211 Complex e/[place]. [address] CBC WITH AUTO DIFF. G8420 BMI<30 AND >=22 CALC & DOCU. G8950 PREHTN/HTN BP DOC INDCD F/U DOC. G8752 MOST RECENT SYSTOLIC BP < 140MM HG. G8754 MOST RECENT DIASTOLIC BP < 90MM HG. * Electronic signature of Araceli Al MD on 03/18/2025 at 09:51 AM EDT Sign off status: Pending * Provider: Luz Al M.D. Date: 0 03/05/2025 Generated for Claudia pembetron/Jennifer/Kacyitting on: 0 03/18/2025 09:51 AM EDT History and Physical Notes * HPI (History of Present Illness) Category Sub-Category Detail Notes Category Not es Cardiology Blood Pressure Elevated Pt here for 6 mo check up on hypertension. Pt states he is doing fine other than his allergies acting up Hyperlipidemia Pt is not fasting to day Examination Category Sub-Category Detail Notes Category Not es Cardiology Lungs: clear, no rales or wheezes Heart sounds: RRR, normal S1, S2 Extremities: no leg edema Peripheral pulses: 2 plus bilateral General Appearance: pleasant, NAD
--- OUTSIDE RECORDS SUMMARY | 2025-03-09 05:15 | XMS_ITS ---
Author Organization [facility] Address 1210 [facility] 36 [facility] [address] [place], [place] [phone] Care Team Providers Care Japanese Tutor Name Role Phone Reilly Al Primary Care Provider [phone] REASON FOR VISIT due col, LDCT Encounters Encounter Location Date Provider Diagnosis [facility] [address] [place] [phone] 03/09/2025 Reilly Al Encounter for screening for lung cancer Z12.2 Assessments Encounter Date Diagnosis (ICD Code) Assessment Notes Treatment Notes Treatment Clinical Notes Section Notes 03/09/2025 Encounter for screening for lung cancer (ICD-10 - Z12.2) Plan Of Treatment Pending Test Test Name Order Date CT Scan : Chest, low dose 03/09/2025 Next Appt Details Provider Name:Reilly Brito ry, 09/06/2025 10:45:00 AM, [facility] [facility] [address], [address], [place], [place], [phone], Progress Notes * Zan FLORESDOB:1955 (69 yo M)Acc No.[id number]:03/09/2025 Patient: Zan CAMILO :1955 A ge:69 Y S ex:Male Address:[address] [place] [address] Subjective: * Chief Complaints: * d ue col, LDCT * Medical History: * Surgical History: * Hospitalization/Major Diagno stic Procedure: * Medications: Objective: * Vitals: * Physical Examination: Assessment: * Assessment: 1. E ncounter for screening for lung cancer - Z12.2 (Primary) Plan: * Treatment: * Procedure Codes: * true * Date: Generated for Claudia pemberton/Jennifer/Terry on: 0 03/18/2025 09:51 AM EDT
--- OUTSIDE RECORDS SUMMARY | 2025-03-09 08:15 | XMS_ITS ---
Author Organization [facility] Address [facility] [facility] [address] [place] [phone] Care Team Providers Care Lining Stuffer Name Role Phone Reilly Al Primary Care Provider [phone] REASON FOR VISIT U/A Encounters Encounter Location Date Provider Diagnosis [facility] [address] [place] [phone] 03/09/2025 Reilly Al Plan Of Treatment Next Appt Details Provider Name:Reilly Brito ry, 09/06/2025 10:45:00 AM, [address], [address], [place], [place], [phone], Progress Notes * Zan FLORESDOB:1955 (69 yo M)Acc No.[id number]:03/09/2025 Patient: Zan CAMILO Provider: Luz Al M.D. :1955 A ge:69 Y S ex:Male Date:03/09/2025 Address:[address], [place], [place] Subjective: * Chief Complaints: * 1 . U/A. * Medical History: Objective: * Vitals: Assessment: Plan: * Treatment: * Images: Billing Information: * Visit Code: * Procedure Codes: * Electronic signature of Araceli Al MD on 03/18/2025 at 09:50 AM EDT Sign off status: Pending * Provider: Luz Al M.D. Date: 0 03/09/2025 Generated for Claudia pemberton/Jennifer/Kacyitting on: 0 03/18/2025 09:50 AM EDT
--- NOTE | 2025-03-18 09:44 | CT_ITS ---
FINAL REPORT CLINICAL HISTORY: HX OF TOBACCO 1 ppd x 60 COMPARISON: 12/09/2023 FINDINGS: CT CHEST LOW DOSE SCREENING HISTORY: Screening exam for lung cancer. 69-year-old male, current smoker, 87-rbwa-nrbx history DOSE: CTDI vol: 2.90 mGy, DLP: 121.94 mGy*cm TECHNIQUE: Axial CT without IV contrast administration using low dose protocol. This study was performed with techniques to keep radiation doses as low as reasonably achievable, (ALARA). Individualized dose reduction techniques using automated exposure control or adjustment of mA and/or kV according to the patient's size were employed. No acute lung disease is present. There is a 4 mm noncalcified right lower lobe nodule present, best seen on image #65 of series 4, stable. Several other smaller nodules remain present and are unchanged. No new nodules are identified. No pleural or pericardial effusion is seen. No adenopathy or mass lesion is present. IMPRESSION: No evidence of lung cancer LUNG RADS CATEGORY 2 RECOMMENDATION: 12 month LDCT follow up Reviewed, Interpreted and Dictated by Buzz Carter MD Transcribed by Jacqui Cuadra Authenticated and [facility]
--- OUTSIDE RECORDS SUMMARY | 2025-03-18 09:50 | XMS_ITS ---
Author Organization Unknown Vital Signs BpStanding BpSitting BpSupine Date Temperature HeartRate Weight Hei ght Spo2 Respiration Bmi HeadCircumference FieldCount TimeRecorded NeckCircumferen ce WaistCircumference Pulse Custom 128/78 08/28 00:00 :00 97.9 78 153,0 5,5 25.4 6 6 03/02/2025 11:15:00
--- OUTSIDE RECORDS SUMMARY | 2025-03-18 09:51 | XMS_ITS | Patient Health Record ---
Author Organization [facility] Address [address] [facility] [facility] [address] [place] [id number] Care Team Providers Care Ancillary Specialist Name Role Phone Reilly Al Primary Care Provider [phone] Allergies No Known Allergies Results Component Value [...] 164 Performing Lab: Notes/Report: Test performed by [facility] [address] [facility] , [address], [place] [address] Chong Polo MD, Mobile Sales Consultant CLIA: [id number] Sodium 133 135-145 mmol/L Potassium 4.2 3.5-5.3 [...] 140 Performing Lab: Notes/Report: Test performed by [facility], [address] , [address], [place] [address] Chong Polo MD, Mobile Sales Consultant CLIA: [id number] Cholesterol 195 <200 mg/dL Triglycerides 86 <150 [...] Interpretation:Normal Performing Lab: Notes/Report: Test performed by [facility] [address] [place] [address] , [facility], [place] [address] Chong Polo MD, Mobile Sales Consultant CLIA: [id number] TSH reflex to FT4 0.72 0.43-5.25 mU/L P-Microalbumin/Creatinine, R andom Urine Sample Reviewed date:03/17/2025 01:53:49 PM Interpretation:Normal Performing Lab: Notes/Report: Test performed by [facility] [address] [place], [place] [address] , [address], [place] [address] Chong Polo MD, Mobile Sales Consultant CLIA: [id number] Albumin/Creatinine Ratio, Urine <7.53 0-30 ug/m g Microalbumin, Urine, Random <0.3 Creatinine, Urine 39.8 Medications Medication SIG (Take, Route, Frequency, Duration) Notes Start Date End Date Status Cetirizine HCl 10 MG 1 tablet Orally Onc e a day; Duration: 30 day(s) 03/05/2025 Active Gabapentin 100 MG 1 capsule Orally Two times a day; Duration: 30 day(s) 02/21/2024 Activ e Sildenafil Citrate 20 MG 1 to 5 tab(s) o rally once daily as needed 11/23/2019 Active Vitamin B-12 1000 MCG 1 tab(s) orally once a day 0 12/18/2018 Active Lisinopril 20 MG Take 1 tablet by darion th once daily Active Famotidine 40 MG 1 tab(s) orally once a day (at bedtime) Active Promethazine-DM 6.25-15 MG/5ML 5 ml as needed Orally every 6 hrs 08/28/2024 Active Immunizations Vaccine Route Administration Date Status Comme nts COVID 19 Pfizer Unknown 11/21/2020 Administered COVID 19 Pfizer Unknown 12/12/2020 Administered Fluzone High Dose (65yr and older) IM Intramuscular 06/07/2021 Administered Fluzone High Dose (65yr and older) IM Intramuscular 05/22/2022 Administered Fluzone Quad-Medicare (6months&older) IM Intramuscular 05/25/2019 Administered PNEUMOVAX 23 VACCINE IM Intramuscular 06/07/2021 Administe red Prevnar (PCV20) IM Intramuscular 05/22/2022 Administered Problems Problem Type SNOMED Code ICD Code Onset Dates Problem Status W/U Status Risk Notes Problem Vitamin B12 deficiency (259401290) Vitamin B12 deficiency (E53.8) Active confirmed Problem Essential hypertension (26797122) Essential hypertension (I10) Active confirmed Problem Postherpetic neuralgia (7539551) Post herpetic neuralgia (B02.29) Active confirmed Problem Nicotine dependence (96013281) Personal history of nicotine dependence (Z87.891) Active confirmed Problem Myositis (05009920) Myofasciitis (M60.9) Active confirmed Problem Cervical disc diseas e (394957876) Cervical disc disease (M50.90) Active confirmed Problem Gastroesophageal reflux disease (441307400) Gastroesophageal reflux disease, esophagitis presence not specified (K21.9) Active confirmed Problem Erectile dysfunction (disorder) (272853742) Erectile dysfunction, unspecified erectile dysfunction type (N52.9) Active confirmed Problem Osteoarthritis of knee (611630108) Primary osteoarthritis of both knees (M17.0) Active confirmed Problem Tobacco user (266164880) Cigarette nicotine dependence without complication (F17.210) Active confirmed Problem Pure hypercholesterolemia (179622510) Pure hypercholesterolemia (E78.00) Active confirmed Problem Seasonal allergic rhinitis (070667893) Seasonal allergic rhinitis, unspecified trigger (J30.2) Active confirmed Problem Allergic rhinitis (31596428) Allergic rhinitis, unspecified seasonality, unspecified trigger (J30.9) Active confirmed Vital Signs Heart Rate 70 /min 03/05/2025 Blood pressure diastolic 80 mm Hg 03/05/2025 Height 65 in 03/05/2025 Blood pressure systolic 124 mm Hg 03/05/2025 Weight 144.4 lbs 03/05/2025 BMI 24.03 kg/m2 03/05/2025 Encounters Encounter Location Date Provider Diagnosis [facility] [address] [place], [place] [id number] 08/28/2024 [place] Essential hypertensi on I10 and Acute cough R05.1 [facility] [address] [place], [place] [id number] 03/05/2025 Reilly [place] Essential hypertensi on I10 ; Vitamin B12 deficiency E53.8 ; Pure hypercholesterolemia E78.00 ; Gastroesophageal reflux disease, esophagitis presence not specified K21.9 ; 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 ; Allergic rhinitis, unspecified seasonality, unspecified trigger J30.9 and BMI 24.0-24.9, adult Z68.24 [facility] [address] [place], [place] [id number] 03/09/2025 Re[place] [facility] [address] [facility] [address] [place], [place] [id number] 05/13/2024 Re[place] Erectile dysfunction , unspecified erectile dysfunction type N52.9 [facility] [address] [facility] [address] [place], [place] [id number] 05/13/2024 Re[place] [facility] [address] [facility] [address] [place], [place] [id number] 07/09/2024 Re[place] [facility] [address] [place], [place] [id number] 10/12/2024 Reilly [place] Essential hypertensi on I10 [facility] [address] [facility] [address] [facility] [address] [place] [id number] 03/09/2025 [place] [facility] [address] [facility] [address] [place] [id number] 03/09/2025 Reilly [place] Encounter for screen ing for lung cancer Z12.2 Assessments Encounter Date Diagnosis (ICD Code) Assessment Notes Treatment Notes Treatment Clinical Notes Section Notes 05/13/2024 Erectile dysfunction , unspecified erectile dysfunction type (ICD-10 - N52.9) 08/28/2024 Essential hypertensi on (ICD-10 - I10) 08/28/2024 Acute cough (ICD-10 - R05.1) 10/12/2024 Essential hypertensi on (ICD-10 - I10) 03/05/2025 Vitamin B12 deficien cy (ICD-10 - E53.8) 03/05/2025 Essential hypertensi on (ICD-10 - I10) 03/09/2025 Encounter for screen ing for lung cancer (ICD-10 - Z12.2) 03/05/2025 Pure hypercholesterolemia (ICD-10 - E78.00) 03/05/2025 Gastroesophageal ref lux disease, esophagitis presence not specified (ICD-10 - K21.9) 03/05/2025 half-way use of radhika g (ICD-10 - Z79.899) 03/05/2025 Allergic rhinitis, unspecified seasonality, unspecified trigger (ICD-10 - J30.9) 03/05/2025 BMI 24.0-24.9, adult (ICD-10 - Z68.24) Plan Of Treatment Pending Test Test Name Order Date CT Scan : Chest, low dose 03/09/2025 Cologuard 08/07/2024 Next Appt Details Provider Name:Reilly [place], 09/06/2025 10:45:00 AM, [address] [facility] [address], [address], [place], [id number], Insurance Providers Payer Name Payer Address Payer Phone Subscriber Number Group Number Insured Name Patient Relationship to Insured Coverage Start Date Coverage End Date [employer] (MEDICAR E) [address] [address] [place] [address] [id number] Sandra Zan Self - patient is the insured Medications Administered Medication Instructions Date of Administration Dosage Notes B-12 07/16/2016 1 mL Depo- Medrol 40 mg/ml 03/12/2013 2 mL Medical (General) History Medical History History ICD Code Disabled due to back pain (medical eval in 2004 or 2005) tobacco abuse, 100 pack year smoking his tory as of 2016 Esophageal reflux Hypertension Bilateral knee arthritis Surgical History Surgery Date(Month/Year) RT Arm LT Knee Cyst Removal 07/2015 Hospitalization History Reason Date(Month/Year) LT Shoulder Pain- [facility] ER 02/2013 Chest Pain, Normal Stress Test 07/2008
--- OUTSIDE RECORDS SUMMARY | 2025-03-18 09:51 | XMS_ITS | Clinical Summary ---
Author Organization [facility] [place] [address] Care Team Providers Care Supervisor Coke Handling Name Role Phone Unavailable Primary Care Provider Unavailabl e Active Problems Patient Care Coordination No te Formatting of this note migh t be different from the original. Care gap audit completed by Sonia Almazan RN on 08/29/2022. attribution No additional problems on file Social History Tobacco Use Types Packs/Day Years Used Date Smoking Tobacco: Never Assessed Sex and Gender Information Value Date Recorded Sex Assigned at Not on file Legal Sex Male 7:08 PM EDT Gender Identity Not on file Sexual Orientation Not on file Plan of Treatment Health Maintenance Due Date Last Done Comments Annual Wellness Exam 1958 Hepatitis C Screening 1973 DTaP/TDaP/Td (1 - Tdap) 1974 Cologuard 2000 Colon Cancer Screening 2000 Colonoscopy 2000 FIT 2000 Sigmoidoscopy 2000 Virtual Colonography 2000 Pneumococcal Vaccine 50+ (1 of 1 - PCV) 2005 Zoster (1 of 2) 2005 COVID-19 Vaccine (2023-2 5 season) 2025 Influenza Vaccine (#1) 2025 Hepatitis B Vaccine Aged Out No longe r eligible based on patient's age to complete this topic Meningococcal B Vaccine Aged Out No l onger eligible based on patient's age to complete this topic
== END 2025-03-18 23:59 | disposition home or self-care (01) ==
LOC: RAD 09:42
PROVIDERS: PCP Family Medicine; Visit Provider Family Medicine
DX: Z12.2 Encounter for screening for malignant neoplasm of respiratory organs (principal); R91.8 Other nonspecific abnormal finding of lung field; Z87.891 Personal history of nicotine dependence
CPT/HCPCS: 71271